=== PATIENT | female | born 1950 | race Caucasian/White ===

== ENCOUNTER → 2023-12-08 | Day surgery (SDC) | payer MEDICARE, MEDICAID ==
[~2023-12-08] VITALS: Ht 167.6 cm; Wt 81.6 kg
[~2023-12-08] MED LIST: ALBU2.5V10 INH; ATEN100T PO; ATOR1TAB21 PO; FURO20TA2 PO; LIDOCAINE 2% 100MG/5ML SDV (FOR ANES.) As Ordered ONE; MELO15TA28 PO; METF500T13 PO; NS 250 ML IV ONE; OMEP40CA4 PO; PROA1AER2 IN; WARF-18 PO; WARF-23 PO; propofoL 200 MG/20 ML VIAL As Ordered ONE
[2023-12-08 09:09] VITALS: BP 178/77; TEMP 97; O2SAT 92
== END | disposition home or self-care (01) ==
LOC: M OPP 08:48
PROVIDERS: ATTEND Surgery
DX: Z12.11 Encounter for screening for malignant neoplasm of colon (principal); Z53.20 Procedure and treatment not carried out because of patient's decision for unspecified reasons; I10 Essential (primary) hypertension; E11.9 Type 2 diabetes mellitus without complications; E78.00 Pure hypercholesterolemia, unspecified; J44.9 Chronic obstructive pulmonary disease, unspecified; Z79.899 Other long term (current) drug therapy; Z79.01 Long term (current) use of anticoagulants; F17.210 Nicotine dependence, cigarettes, uncomplicated; Z86.73 Personal history of transient ischemic attack (TIA), and cerebral infarction without residual deficits; Z79.84 Long term (current) use of oral hypoglycemic drugs